=== PATIENT | female | born 1930 | race Caucasian/White ===

== ENCOUNTER 2018-05-02 09:44 | Emergency (ER) | payer OTHER ==
[~2018-05-02] VITALS: Ht 149.9 cm; Wt 46.7 kg
[~2018-05-02 09:44] MED LIST: ATENOLOL25 MG; PLAVIX75 MG; PREVASTATIN; TUSSI PRES-B L120 M1 PO; VASOTEC10 MG
[2018-05-02] MEDS ORDERED: PRAVASTATIN SOD40 MG (10:25)
== END 2018-05-02 19:25 | disposition home or self-care (01) ==
LOC: ER 09:44
DX: S00.03XA Contusion of scalp, initial encounter (principal); W18.09XA Striking against other object with subsequent fall, initial encounter; Y93.89 Activity, other specified; Y92.488 Other paved roadways as the place of occurrence of the external cause; Y99.8 Other external cause status